=== PATIENT | female | born 1970 | race African-American/Black ===

== ENCOUNTER 2021-03-07 11:24 | Emergency (ER) | payer OTHER ==
[~2021-03-07] VITALS: Ht 157.5 cm; Wt 121.1 kg
[2021-03-07 11:29] VITALS: BP 165/126
[2021-03-07] MEDS ORDERED: METFORMIN HCL500 M3 PO (11:54)
[2021-03-07] MEDS ORDERED: FLEXERIL PO (11:54)
[2021-03-07] MEDS ORDERED: PROAIR HFA8.5 GM INH (11:54)
[2021-03-07] MEDS ORDERED: SYNTHROID50 MCG PO (11:55)
[2021-03-07] MEDS ORDERED: CHLORTHALIDONE25 MG PO (11:55)
[2021-03-07] MEDS ORDERED: DIVALPROEX SOD250 M1 PO (11:55)
[2021-03-07] MEDS ORDERED: COZAAR100 MG PO (11:56)
[2021-03-07] MEDS ORDERED: COREG6.25 MG PO (11:56)
[2021-03-07] MEDS ORDERED: COLACE100 MG PO (11:56)
[2021-03-07] MEDS ORDERED: NIFEDIPINE ER30 MG PO (11:56)
[2021-03-07] MEDS ORDERED: PROTONIX40 M4 PO (11:57)
[2021-03-07] MEDS ORDERED: ALDACTONE50 MG PO (11:57)
[2021-03-07] MEDS ORDERED: PROVIGIL 200 M200 MG PO (11:57)
[2021-03-07] MEDS ORDERED: VITAMIN D (11:57)
[2021-03-07] MEDS ORDERED: BACTRIM DS TAB1 EACH PO (12:32)
[2021-03-07] MEDS ORDERED: NORCO5 PO (12:33)
== END 2021-03-07 13:30 | disposition home or self-care (01) ==
LOC: ER 11:24
DX: L02.811 Cutaneous abscess of head [any part, except face] (principal); L72.3 Sebaceous cyst; I10 Essential (primary) hypertension; E11.9 Type 2 diabetes mellitus without complications; G43.909 Migraine, unspecified, not intractable, without status migrainosus; J45.909 Unspecified asthma, uncomplicated; Z88.0 Allergy status to penicillin; Z79.899 Other long term (current) drug therapy